=== PATIENT | female | born 1985 | race Caucasian/White ===

== ENCOUNTER 2023-07-30 13:44 | Emergency (ER) | payer OTHER ==
[~2023-07-30] VITALS: Ht 167.6 cm; Wt 70.3 kg
[2023-07-30 14:06] VITALS: BP 109/61; PULSE 78; RESP 14; TEMP 98.2; O2SAT 97
[2023-07-30] MEDS ORDERED: KETOROLAC 30 MG/ML VIAL IM ONE (15:25)
[2023-07-30] MEDS ORDERED: NAPR-1704 PO (15:45)
[2023-07-30] MEDS ORDERED: CAPS1ADH5 TP (15:45)
[2023-07-30] MEDS ORDERED: CYCL-711 PO (15:46)
== END 2023-07-30 16:02 | disposition home or self-care (01) ==
LOC: MED 13:44
DX: S46.811A Strain of other muscles, fascia and tendons at shoulder and upper arm level, right arm, initial encounter (principal); X58.XXXA Exposure to other specified factors, initial encounter; Y93.89 Activity, other specified; Y92.89 Other specified places as the place of occurrence of the external cause; Y99.8 Other external cause status
CPT/HCPCS: 81025; 96372; 99283; J1885